=== PATIENT | female | born 1990 | race Caucasian/White ===

== ENCOUNTER 2016-12-04 13:51 | Outpatient (CLI) | payer BC ==
[~2016-12-04 13:51] MED LIST: Flintstones PO
[2016-12-04 14:16] VITALS: BP 144/82
[2016-12-04 15:22] VITALS: BP 139/64
[2016-12-04 15:28] VITALS: BP 134/71
[2016-12-04 15:33] VITALS: BP 132/73
[2016-12-04 15:39] VITALS: BP 130/76
[2016-12-04 16:15] VITALS: BP 136/81
[2016-12-04 16:23] LABS: EOSINOPHIL (%) 0.2 % (0-5); HEMATOCRIT 35.5 % (36.0-46.0); IMMATURE GRANULOCYTE (%) 0.6 % (0.0-0.7); IMMATURE GRANULOCYTE COUNT 0.1 K/uL; LYMPHOCYTE COUNT 2.1 K/uL (1.0-2.8); MCH 26.7 PG (29.0-34.0); MCHC 32.7 G/DL (30.0-36.0); MCV 81.6 FL (83-99); MONOCYTE (%) 7.7 % (3-12); MONOCYTE COUNT 1.1 K/uL (0-0.8); NEUTROPHIL (%) 76.7 % (45-76); NEUTROPHIL COUNT 10.8 K/uL (1.8-6.4); PLATELET COUNT 334 K/uL (156-360); RBC DIS.WIDTH-CV 15.2 % (11.8-14.6); RBC DIS.WIDTH-SD 44.8 % (39-53); RED BLOOD COUNT 4.35 M/uL (3.80-5.20); WHITE BLOOD COUNT 14.1 K/uL (4.1-10.2)
[2016-12-04 16:25] LABS: ANION GAP 11 MEQ/L (2-14); CHLORIDE 102 MEQ/L (99-109); POTASSIUM 3.7 MEQ/L (3.7-5.4); SAMPLE HEMOLYSIS CHECK 0; SAMPLE ICTERIC CHECK 0; SAMPLE LIPEMIA CHECK 0; SODIUM 133 MEQ/L (136-147); TOTAL BILIRUBIN 0.3 MG/DL (0.0-1.0)
[2016-12-04 16:31] LABS: ALKALINE PHOSPHATASE 174 IU/L (3-129); GFR ESTIMATE (CALCULATED) > 59 mL/min/; GLUCOSE 88 mg/dL (70-99); LACTATE DEHYDROGENASE 165 IU/L (20-246); UREA NITROGEN (BUN) 6 mg/dL (9-23); URIC ACID 4.4 mg/dL (3.1-9.2)
[2016-12-04 16:31] LABS: UR CREATININE CONCENTRATION 62.3 MG/DL
[2016-12-04 18:38] LABS: UR CREATININE CONCENTRATION 56.7 MG/DL
== END 2016-12-04 17:25 | disposition home or self-care (01) ==
LOC: LDRP-OP → 2WEST 13:54 → LDRP-OP 01-07 11:42
PROVIDERS: Advanced Practice Midwife
DX: O47.1 False labor at or after 37 completed weeks of gestation (principal); O99.89 Other specified diseases and conditions complicating pregnancy, childbirth and the puerperium; Z3A.39 39 weeks gestation of pregnancy
CPT/HCPCS: 59025; 80053; 82570; 83615; 84156; 84550; 85025; 87086; G0378

== ENCOUNTER 2016-12-04 22:00 | Inpatient (IN) | payer BC ==
[~2016-12-04] VITALS: Ht 175.3 cm; Wt 101.1 kg
[2016-12-04 22:18] VITALS: BP 145/78
[2016-12-04 22:47] VITALS: BP 142/73
[2016-12-04 23:02] VITALS: BP 145/73
[2016-12-04 23:17] VITALS: BP 145/78
[2016-12-04 23:32] VITALS: BP 142/78
[2016-12-05 00:32] VITALS: BP 129/77
[2016-12-05 01:32] VITALS: BP 142/76
[2016-12-05 06:56] LABS: EOSINOPHIL (%) 0.2 % (0-5); HEMATOCRIT 32.9 % (36.0-46.0); IMMATURE GRANULOCYTE (%) 0.5 % (0.0-0.7); IMMATURE GRANULOCYTE COUNT 0.1 K/uL; LYMPHOCYTE COUNT 2.8 K/uL (1.0-2.8); MCH 26.2 PG (29.0-34.0); MCHC 32.5 G/DL (30.0-36.0); MCV 80.4 FL (83-99); MEAN PLAT.VOLUME 9.7 uM^3 (9.5-12.4); MONOCYTE (%) 10.4 % (3-12); MONOCYTE COUNT 1.6 K/uL (0-0.8); NEUTROPHIL (%) 70.5 % (45-76); NEUTROPHIL COUNT 10.6 K/uL (1.8-6.4); PLATELET COUNT 308 K/uL (156-360); RBC DIS.WIDTH-CV 15.1 % (11.8-14.6); RBC DIS.WIDTH-SD 44.1 % (39-53); RED BLOOD COUNT 4.09 M/uL (3.80-5.20); WHITE BLOOD COUNT 15.1 K/uL (4.1-10.2)
[2016-12-05 07:54] VITALS: BP 133/79
[2016-12-05 15:44] VITALS: BP 136/77
[2016-12-05 23:00] VITALS: BP 120/66
[2016-12-06 08:05] VITALS: BP 131/71
[2016-12-06] MEDS ORDERED: IBUPROFEN800 MG PO (08:17)
== END 2016-12-06 11:20 | disposition home or self-care (01) | DRG 775 ==
LOC: LDRP-OP 22:00 → 2WEST 22:01
PROVIDERS: Advanced Practice Midwife
DX: O13.4 Gestational [pregnancy-induced] hypertension without significant proteinuria, complicating childbirth (principal); O99.334 Smoking (tobacco) complicating childbirth; Z37.0 Single live birth; Z3A.39 39 weeks gestation of pregnancy; F17.200 Nicotine dependence, unspecified, uncomplicated
CPT/HCPCS: 59025; 80053; 82570; 83615; 84156; 84550; 85025; 87086; G0378; J2590